=== PATIENT | female | born 1935 | race Caucasian/White ===

== ENCOUNTER 2016-11-03 01:52 | Outpatient (CLI) | payer MEDICARE, OTHER | END 2016-11-03 01:53 | disposition short-term general hospital (02) | LOC: EMS 01:52 | PROVIDERS: ATTEND Surgery | DX: R53.1 Weakness (principal); R29.6 Repeated falls; W18.39XA Other fall on same level, initial encounter; Y92.092 Bedroom in other non-institutional residence as the place of occurrence of the external cause | CPT/HCPCS: A0425; A0429 ==

== ENCOUNTER 2017-01-20 14:13 | Outpatient (CLI) | payer MEDICARE, OTHER | END 2017-01-20 14:14 | disposition short-term general hospital (02) | LOC: EMS 14:13 | PROVIDERS: ATTEND Surgery | DX: R06.02 Shortness of breath (principal); R11.2 Nausea with vomiting, unspecified; R53.1 Weakness; Z99.2 Dependence on renal dialysis | CPT/HCPCS: A0425; A0429 ==

== ENCOUNTER 2017-08-07 22:21 | Outpatient (CLI) | payer MEDICARE, OTHER | END 2017-08-07 22:22 | disposition critical access hospital (66) | LOC: EMS 22:21 | PROVIDERS: ATTEND Surgery | DX: S09.90XA Unspecified injury of head, initial encounter (principal); R53.1 Weakness; W18.39XA Other fall on same level, initial encounter; Y93.01 Activity, walking, marching and hiking; Y92.090 Kitchen in other non-institutional residence as the place of occurrence of the external cause | CPT/HCPCS: A0425; A0427 ==

== ENCOUNTER 2017-08-07 22:38 | Emergency (ER) | payer MEDICARE, OTHER ==
[2017-08-07 23:13] LABS: BASOPHILS # (AUTO) 0.1 10^3/uL (0.0-0.1); BASOPHILS % (AUTO) 1.5 %; EOSINOPHILS # (AUTO) 0.3 10^3/uL (0.0-0.7); HGB - HEMOGLOBIN 11.2 g/dL (12.0-16.0); LYMPHOCYTES # (AUTO) 1.2 10^3/uL (1.5-3.5); LYMPHOCYTES % (AUTO) 13.8 %; MEAN CORPUSCULAR HEMOGLOBIN 33.7 pg (27.0-31.0); MEAN CORPUSCULAR HGB CONC 32.8 g/dL (32.0-36.0); MEAN CORPUSCULAR VOLUME 102.8 fL (81.0-99.0); MONOCYTES # (AUTO) 0.7 10^3/uL (0.0-1.0); MONOCYTES % (AUTO) 8.3 %; NEUTROPHILS # (AUTO) 6.4 10^3/uL (1.5-6.6); NEUTROPHILS % (AUTO) 73.4 %; PLT - PLATELET COUNT 335 10^3/uL (130-450); RED CELL DISTRIBUTION WIDTH 14.2 % (12.0-15.0); WHITE BLOOD COUNT 8.8 x10^3/uL (4.8-10.8)
--- NOTE | 2017-08-07 23:17 | ED Physician Documentation ---
History of Present Illness - Stated complaint Stated Complaint: WEAKNESS,DIZZY, FELL,HIT HEAD, RIGHT HIP PAIN - Chief complaint Chief Complaint: Neuro - History obtained from History obtained from: Patient, EMS - History of Present Illness Timing: Today - Additonal information Additional information: Patient is an 82 year old female with a history of diabetes on dialysis MWF who is presenting to the emergency department after falling. According to patient and ems patient had gotten up and tried to ambulate (normally uses a walker) and patient fell. Patient landed on her right side and ended up hitting her head. EMS was called and when they arrived patient was found on the ground and that her blood glucose was in the 40s. Patient was treated with oral glucose and brought in for evaluation. Review of Systems Constitutional: denies: Fever, Chills Eyes: denies: Decreased vision, Photophobia Ears: denies: Ear pain, Drainage/discharge Nose: denies: Epistaxis Cardiac: denies: Chest pain / pressure, Palpitations, Calf pain Respiratory: denies: Dyspnea, Cough GI: denies: Nausea, Vomiting Skin: reports: Abrasion (s) Musculoskeletal: reports: Extremity pain, Joint pain. denies: Neck pain Neurologic: reports: Generalized weakness, Head injury. 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 - Present Medications Home Medications: Ambulatory Orders Medication Instructions Recorded Confirmed Acetaminophen [8 Hour Pain Relief] 650 mg PO Q6HR PRN 08/26/12 01/27/14 Darifenacin [Enablex] 15 mg PO 08/26/12 01/27/14 Docusate Sodium 250 mg PO PRN 08/26/12 01/27/14 Folic Acid/Vit Bcomp,C [Dialyvite 1 each PO 08/26/12 01/27/14 Tablet] Gabapentin 300 mg PO DAILY 08/26/12 01/27/14 Gabapentin 900 mg PO HS 08/26/12 01/27/14 Insulin Glargine [Lantus] 38 unit SUBQ QPM 08/26/12 01/27/14 Insulin Glulisine [Apidra] 12 unit SQ BIDAC 08/26/12 01/27/14 Lanthanum Carbonate [Fosrenol] 1,000 mg PO DAILY 08/26/12 01/27/14 Simvastatin 80 mg PO DAILY 08/26/12 01/27/14 Albuterol Sulfate [Albuterol 2 puffs IH Q6HR PRN 10/02/13 01/27/14 Sulfate Hfa] Amlodipine Besylate [Norvasc] 2.5 mg PO BID 10/02/13 01/27/14 Amlodipine Besylate [Norvasc] 5 mg PO BID 10/02/13 01/27/14 Benzonatate 100 mg PO DAILY PRN 10/02/13 01/27/14 Carvedilol [Coreg] 12.5 mg PO DAILY 10/02/13 01/27/14 Folic Acid/Vit Bcomp,C [Dialyvite 800 mg PO DAILY 10/02/13 01/27/14 Tablet] Loratadine 10 mg PO DAILY PRN 10/02/13 01/27/14 Pravastatin Sodium [Pravachol] 40 mg PO DAILY 10/02/13 01/27/14 Saccharomyces Boulardii [Florastor] 250 mg PO DAILY 10/02/13 01/27/14 Sevelamer Carbonate [Renvela] 2,400 mg PO TID 10/02/13 01/27/14 Tolterodine [Detrol LA] 4 mg PO DAILY 10/02/13 01/27/14 - Allergies Allergies/Adverse Reactions: Allergies Allergy/AdvReac Type Severity Reaction Status Date / Time Penicillins Allergy Severe Rash Verified 08/07/17 22:45 Sulfa (Sulfonamide Allergy Intermediate Hives Verified 08/07/17 22:45 Antibiotics) Salicylates * [Salicylates] Allergy Unknown Unknown Verified 08/07/17 22:45 aspirin AdvReac Mild Emesis Verified 08/07/17 22:45 codeine [Codeine] AdvReac Mild Nausea Verified 08/07/17 22:45 - Social History Does the pt smoke?: No Smoking Status: Never smoker Does the pt drink ETOH?: No Does the pt have substance abuse?: No - Immunizations Immunizations are current?: Yes - POLST POLST Status: Limited Interventions PD ED PE NORMAL - Vitals Vital signs reviewed: Yes - General General: Alert and oriented X 3, No acute distress - HEENT HEENT: PERRL - Neck Neck: No bony TTP - Cardiac Cardiac: RRR - Respiratory Respiratory: No respiratory distress - Abdomen Abdomen: Non distended - Derm Derm: Normal color - Extremities Extremities: No deformity - Neuro Neuro: Alert and oriented X 3, No motor deficit, Normal speech Eye Opening: Spontaneous Motor: Obeys Commands Verbal: Oriented GCS Score: 15 - Psych Psych: Normal mood PD ED PE EXPANDED - HEENT HEENT: Head injury (small abrasion to right posterior scalp), PERRL, EOMI Results - Vitals Vitals: Vital Signs - 24 hr 08/07/17 08/07/17 08/08/17 22:39 23:42 00:17 Temperature 36.1 C L Heart Rate 64 61 63 Respiratory 20 16 19 Rate Blood Pressure 191/50 H 176/46 H 167/62 H O2 Saturation 97 100 100 08/08/17 01:06 Temperature Heart Rate 67 Respiratory 14 Rate Blood Pressure 168/47 H O2 Saturation 99 Oxygen O2 Source [] Room air O2 Source [] Nasal cannula O2 Source Room air - EKG (time done) 2243 Rate: Rate (enter#) (62) Rhythm: NSR Baxter: Anterior hemiblock Intervals: Normal LA, RBBB Compare to prior EKG: Unchanged from prior EKG - Labs Labs: Laboratory Tests 08/07/17 08/07/17 08/07/17 23:03 23:03 23:03 WBC 8.8 RBC 3.30 L Hgb 11.2 L Hct 34.0 L MCV 102.8 H MCH 33.7 H MCHC 32.8 RDW 14.2 Plt Count 335 MPV 8.0 Neut # 6.4 Lymph # 1.2 L Parke # 0.7 Eos # 0.3 Baso # 0.1 Absolute Nucleated RBC 0.00 Nucleated RBC % 0.0 Sodium 135 Potassium 4.0 Chloride 93 L Carbon Dioxide 32 Anion Gap 10.0 BUN 40 H Creatinine 5.9 H Estimated GFR (MDRD) 7 L Glucose 66 L Calcium 9.3 Phosphorus 4.7 H Magnesium 2.7 Total Bilirubin 0.4 AST 20 ALT 15 Alkaline Phosphatase 129 H Troponin I 0.10 Total Protein 7.0 Albumin 4.1 Globulin 2.9 Albumin/Globulin Ratio 1.4 Lipase 54 H 08/08/17 01:00 WBC RBC Hgb Hct MCV MCH MCHC RDW Plt Count MPV Neut # Lymph # Parke # Eos # Baso # Absolute Nucleated RBC Nucleated RBC % Sodium Potassium Chloride Carbon Dioxide Anion Gap BUN Creatinine Estimated GFR (MDRD) Glucose Calcium Phosphorus Magnesium Total Bilirubin AST ALT Alkaline Phosphatase Troponin I 0.09 Total Protein Albumin Globulin Albumin/Globulin Ratio Lipase - Rads (name of study) ct head Radiology: Final report received (no acute intracranial pathology) PD MEDICAL DECISION MAKING - ED course Complexity details: reviewed old records, reviewed results, re-evaluated patient , considered differential, d/w patient, d/w family ED course: patient was seen and examined at bedside. Patient was awake and oriented. ekg was performed and was unchanged from previous. labs were drawn and imaging was ordered. When patient returned from imaging the results were reviewed. there were no acute abnormalities. patient was given a high carbohydrate meal. patient's repeat troponin remained negative and patient was asymptomatic. Patient required no further work up and was stable to go home with her family. Departure - Departure Disposition: 01 Home, Self Care Clinical Impression: Fall, Scalp hematoma Condition: Good Instructions: Falls Risks Prevent Follow-Up: primary,care provider [Other] - Tomorrow Comments: Your diagnostics today were within normal limits. there were no major abnormalities aside from your blood sugar being slightly low. Make sure you that you have adequate caloric intake. If you have recurrence of these symptoms you may need to change your insulin regiment. You may return to the emergency department at any time for new, worsening or uncontrollable symptoms.
[2017-08-07 23:28] LABS: ALBUMIN 4.1 g/dL (3.2-5.5); ALBUMIN/GLOBULIN RATIO 1.4 (1.0-2.2); BILIRUBIN,TOTAL 0.4 mg/dL (0.2-1.0); CALCIUM 9.3 mg/dL (8.5-10.3); CREATININE 5.9 mg/dL (0.4-1.0); MAGNESIUM 2.7 mg/dL (1.7-2.8); PHOSPHORUS 4.7 mg/dL (2.5-4.6)
--- NOTE | 2017-08-08 00:10 | CT Report ---
EXAM: CT HEAD EXAM DATE: 08/08/2017. CLINICAL HISTORY: Fall, head trauma. COMPARISON: Head CT 09/28/2012. TECHNIQUE: Multiaxial CT images were obtained from the foramen magnum to the vertex. Reformats: Coron al. IV contrast: None. In accordance with CT protocol optimization, one or more of the following dose reduction techniques w ere utilized for this exam: automated exposure control, adjustment of mA and/or KV based on patient s ize, or use of iterative reconstructive technique. FINDINGS: Parenchyma: No intraparenchymal hemorrhage. No evidence of mass, midline shift, or CT findings of acu te infarction. Saleh-white differentiation is distinct. Diffuse chronic microangiopathic white matter changes are evident. Extraaxial Spaces: Normal for age. No subdural or epidural collections identified. Ventricles: The ventricles and cortical sulci are enlarged, consistent with age-related tissue loss. Sinuses and orbits: Imaged paranasal sinuses, orbits, and mastoids show no significant abnormality. Bones: No evidence of fracture or calvarial defect. Other: None. IMPRESSION: Generalized age-related cortical atrophic changes without evidence of acute intracranial abnormality. [facility] Referring Provider Line: [phone] SITE ID: [id number]
--- NOTE | 2017-08-08 00:10 | CT Preliminary Report ---
Exam: CT HEAD W/O IMPRESSION: Generalized age-related cortical atrophic changes without evidence of acute intracranial abnormality. [facility] SITE ID: [id number]
[2017-08-08 01:07] VITALS: BP 168/47
== END 2017-08-08 01:43 | disposition home or self-care (01) ==
LOC: EDUNIT# → ED 22:38
DX: S00.03XA Contusion of scalp, initial encounter (principal); W18.30XA Fall on same level, unspecified, initial encounter; I50.9 Heart failure, unspecified; E11.9 Type 2 diabetes mellitus without complications; I13.0 Hypertensive heart and chronic kidney disease with heart failure and stage 1 through stage 4 chronic kidney disease, or unspecified chronic kidney disease; N28.9 Disorder of kidney and ureter, unspecified; Z79.4 Long term (current) use of insulin
CPT/HCPCS: 36415; 70450; 80053; 83690; 83735; 84100; 84484; 85025; 93005; 99284

== ENCOUNTER 2018-01-12 07:14 | Outpatient (CLI) | payer MEDICARE, OTHER | END 2018-01-12 07:15 | disposition short-term general hospital (02) | LOC: EMS 07:14 | PROVIDERS: ATTEND Surgery | DX: R06.02 Shortness of breath (principal); Z99.2 Dependence on renal dialysis | CPT/HCPCS: A0425; A0427; A0888 ==

== ENCOUNTER 2019-12-06 09:14 | Outpatient (CLI) | payer MEDICARE, OTHER | END 2019-12-06 09:15 | disposition short-term general hospital (02) | LOC: EMS 09:14 | PROVIDERS: ATTEND Surgery | DX: M25.552 Pain in left hip (principal); M54.5 Low back pain; W19.XXXA Unspecified fall, initial encounter | CPT/HCPCS: A0425; A0429 ==

== ENCOUNTER 2019-12-23 02:10 | Outpatient (CLI) | payer MEDICARE, OTHER | END 2019-12-23 02:11 | disposition short-term general hospital (02) | LOC: EMS 02:10 | PROVIDERS: ATTEND Surgery | DX: R06.02 Shortness of breath (principal); Z99.81 Dependence on supplemental oxygen | CPT/HCPCS: A0425; A0427 ==

== ENCOUNTER 2019-12-31 14:29 | Outpatient (CLI) | payer MEDICARE, OTHER | END 2019-12-31 14:30 | disposition short-term general hospital (02) | LOC: EMS 14:29 | PROVIDERS: ATTEND Surgery | DX: D58.2 Other hemoglobinopathies (principal) | CPT/HCPCS: A0425; A0429 ==

== ENCOUNTER 2020-01-25 09:50 | Outpatient (CLI) | payer MEDICARE, OTHER | END 2020-01-25 09:51 | disposition short-term general hospital (02) | LOC: EMS 09:50 | PROVIDERS: ATTEND Surgery | DX: S00.03XA Contusion of scalp, initial encounter (principal); W18.39XA Other fall on same level, initial encounter; Y93.K9 Activity, other involving animal care; Y92.190 Kitchen in other specified residential institution as the place of occurrence of the external cause | CPT/HCPCS: A0425; A0429 ==

== ENCOUNTER 2020-01-31 07:59 | Outpatient (CLI) | payer MEDICARE, OTHER | END 2020-01-31 08:00 | disposition short-term general hospital (02) | LOC: EMS 07:59 | PROVIDERS: ATTEND Surgery | DX: R07.9 Chest pain, unspecified (principal); R46.4 Slowness and poor responsiveness; R09.89 Other specified symptoms and signs involving the circulatory and respiratory systems | CPT/HCPCS: A0425; A0427 ==

== ENCOUNTER 2020-02-01 00:12 | Outpatient (CLI) | payer MEDICARE, OTHER | END 2020-02-01 00:13 | disposition short-term general hospital (02) | LOC: EMS 00:12 | PROVIDERS: ATTEND Surgery | DX: R41.0 Disorientation, unspecified (principal); Z99.2 Dependence on renal dialysis | CPT/HCPCS: A0425; A0427 ==

== ENCOUNTER 2020-02-26 13:05 | Outpatient (CLI) | payer MEDICARE, OTHER | END 2020-02-26 13:06 | disposition critical access hospital (66) | LOC: EMS 13:05 | PROVIDERS: ATTEND Surgery | DX: M25.552 Pain in left hip (principal); R51.9 Headache, unspecified | CPT/HCPCS: A0425; A0429 ==

== ENCOUNTER 2020-02-26 13:40 | Emergency (ER) | payer MEDICARE, OTHER ==
--- NOTE | 2020-02-26 14:18 | ED Physician Documentation ---
History of Present Illness - Stated complaint Stated Complaint: GLF/HIP PX - Chief complaint Chief Complaint: Ext Problem - History obtained from History obtained from: Patient, EMS - History of Present Illness Timing: Today Pain level max: 4 Pain level now: 3 - Additonal information Additional information: Patient is an 85-year-old female who presents to the emergency department after a ground-level fall earlier today. Complaining of mild left hip pain. Worse with movement, better with rest. She was able to ambulate after the event. EMS brought her in for further evaluation and care. She is on dialysis. Had dialysis yesterday. 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 - Present Medications Home Medications: Ambulatory Orders Medication Instructions Recorded Confirmed Acetaminophen [8 Hour Pain Relief] 650 mg PO Q6HR PRN 08/26/12 01/27/14 Darifenacin [Enablex] 15 mg PO 08/26/12 01/27/14 Docusate Sodium 250 mg PO PRN 08/26/12 01/27/14 Folic Acid/Vit B Complex and C 1 each PO 08/26/12 01/27/14 [Dialyvite Tablet] Gabapentin 300 mg PO DAILY 08/26/12 01/27/14 Gabapentin 900 mg PO HS 08/26/12 01/27/14 Insulin Glargine [Lantus] 38 unit SUBQ QPM 08/26/12 01/27/14 Insulin Glulisine [Apidra] 12 unit SQ BIDAC 08/26/12 01/27/14 Lanthanum Carbonate [Fosrenol] 1,000 mg PO DAILY 08/26/12 01/27/14 Simvastatin 80 mg PO DAILY 08/26/12 01/27/14 Albuterol Sulfate [Albuterol 2 puffs IH Q6HR PRN 10/02/13 01/27/14 Sulfate Hfa] Amlodipine Besylate [Norvasc] 2.5 mg PO BID 10/02/13 01/27/14 Amlodipine Besylate [Norvasc] 5 mg PO BID 10/02/13 01/27/14 Benzonatate 100 mg PO DAILY PRN 10/02/13 01/27/14 Folic Acid/Vit B Complex and C 800 mg PO DAILY 10/02/13 01/27/14 [Dialyvite Tablet] Loratadine 10 mg PO DAILY PRN 10/02/13 01/27/14 Pravastatin Sodium [Pravachol] 40 mg PO DAILY 10/02/13 01/27/14 Saccharomyces Boulardii [Florastor] 250 mg PO DAILY 10/02/13 01/27/14 Sevelamer Carbonate [Renvela] 2,400 mg PO TID 10/02/13 01/27/14 Tolterodine [Detrol LA] 4 mg PO DAILY 10/02/13 01/27/14 carvediloL [Coreg] 12.5 mg PO DAILY 10/02/13 01/27/14 - Allergies Allergies/Adverse Reactions: Allergies Allergy/AdvReac Type Severity Reaction Status Date / Time Penicillins Allergy Severe Rash Verified 08/07/17 22:45 Sulfa (Sulfonamide Allergy Intermediate Hives Verified 08/07/17 22:45 Antibiotics) Salicylates * [Salicylates] Allergy Unknown Unknown Verified 08/07/17 22:45 aspirin AdvReac Mild Emesis Verified 08/07/17 22:45 codeine [Codeine] AdvReac Mild Nausea Verified 08/07/17 22:45 - Social History Does the pt smoke?: No Smoking Status: Never smoker Does the pt drink ETOH?: No Does the pt have substance abuse?: No - Immunizations Immunizations are current?: Yes - POLST Patient has POLST: Yes POLST Status: Limited Interventions PD ED PE NORMAL - Vitals Vital signs reviewed: Yes - General General: Alert and oriented X 3, No acute distress - HEENT HEENT: Atraumatic, PERRL, Moist mucous membranes - Neck Neck: Supple, no meningeal sign, No bony TTP - Cardiac Cardiac: RRR - Respiratory Respiratory: No respiratory distress, Clear bilaterally - Abdomen Abdomen: Soft, Non tender, Non distended - Back Back: No spinal TTP - Derm Derm: Warm and dry - Extremities Extremities: Other (Mild pain at the extremes of motion of the left hip. No crepitus. Mild tenderness over the greater trochanter. No external rotation. No shortening. NVI) - Neuro Neuro: Alert and oriented X 3 Results - Vitals Vitals: Vital Signs - 24 hr 02/26/20 02/26/20 02/26/20 13:45 13:50 16:14 Temperature 36.9 C 36.0 C L Heart Rate 67 66 70 Respiratory 16 18 16 Rate Blood Pressure 187/60 H 196/60 H 188/59 H O2 Saturation 93 96 95 Oxygen O2 Source [] Room air O2 Source [] Nasal cannula O2 Source Room air - Rads (name of study) L hip xray Radiology: Prelim report reviewed, EMP read contemporaneously, See rad report pelvis CT Radiology: Prelim report reviewed, EMP read contemporaneously, See rad report PD MEDICAL DECISION MAKING - ED course Complexity details: reviewed results, re-evaluated patient, considered differential, d/w patient ED course: 85-year-old female presents to the emergency department after a ground-level fall today. Has left hip pain. Initial left hip x-ray was concerning for left superior pubic ramus fracture. CT of the pelvis performed, does not show any fractures in the pelvis or the hip. Patient is ambulating well. Declines pain medication. We will have her follow-up with her doctor for further care. Patient counseled regarding signs and symptoms for which I believe and urgent re-evaluation would be necessary. Patient with good understanding of and agreement to plan and is comfortable going home at this time This document was made in part using voice recognition software. While efforts are made to proofread this document, sound alike and grammatical errors may occur. CT Pelvis No acute fracture. Finding seen on plain film is likely secondary to artifact. L hip xray Mildly displaced left superior pubic ramus fracture. Departure - Departure Disposition: 01 Home, Self Care Clinical Impression: Contusion, hip Qualifiers: Encounter type: initial encounter Laterality: left Qualified Code(s): S70.02XA - Contusion of left hip, initial encounter Condition: Good Instructions: ED Contusion Hip Follow-Up: Nathan Garza MD [Primary Care Provider] - Within 1 week Comments: Your CT scan does not show any fractures today. You can bear weight as tolerated. Follow-up with your doctor for further care. Discharge Date/Time: 02/26/20 16:50
--- NOTE | 2020-02-26 14:52 | XRAY Report ---
PROCEDURE: Hip w/Pelvis 2-3V LT INDICATIONS: L hip pain s/p fall TECHNIQUE: AP pelvis with lateral view(s) of the left hip(s). COMPARISON: None. FINDINGS: Bones: Linear lucency traverses the left superior pubic ramus. Pelvic ring appears intact. No suspic ious bony lesions. Soft tissues: The visualized bowel gas pattern is normal. No suspicious soft tissue calcifications. IMPRESSION: Mildly displaced left superior pubic ramus fracture. Reviewed by: Eddie Maldonado MD on 02/26/2020 2:50 PM PST Approved by: Eddie Maldonado MD on 02/26/2020 2:50 PM PST Station ID: [id number]
--- NOTE | 2020-02-26 15:34 | CT Report ---
PROCEDURE: PELVIS WO INDICATIONS: fall, possible pubic ramus fracture TECHNIQUE: Noncontrast 3 mm axial sections acquired through the bony pelvis, with coronal and sagittal reformatt ing. For radiation dose reduction, the following was used: automated exposure control, adjustment of mA and/or kV according to patient size. COMPARISON: Plain films dated 02.26.20 FINDINGS: Image quality: Excellent. Bones: No fracture nor osseous lesion. Bilateral hip joint space narrowing and periarticular osteoph yte formation. Soft tissues: Visualized bowel loops are normal in caliber. No fluid collections. Calcification of t he vasculature. IMPRESSION: No acute fracture. Finding seen on plain film is likely secondary to artifact. Reviewed by: Eddie Maldonado MD on 02/26/2020 2:33 PM [place] Approved by: Eddie Maldonado MD on 02/26/2020 2:33 PM [facility] Station ID: [id number]
[2020-02-26 16:15] VITALS: BP 188/59
== END 2020-02-26 16:50 | disposition home or self-care (01) ==
LOC: ED 13:40
DX: S70.02XA Contusion of left hip, initial encounter (principal); W18.30XA Fall on same level, unspecified, initial encounter; Y92.129 Unspecified place in nursing home as the place of occurrence of the external cause; I10 Essential (primary) hypertension; E11.9 Type 2 diabetes mellitus without complications; Z79.4 Long term (current) use of insulin; N28.9 Disorder of kidney and ureter, unspecified; Z99.2 Dependence on renal dialysis
CPT/HCPCS: 72192; 99284

== ENCOUNTER 2020-02-26 16:39 | Outpatient (CLI) | payer MEDICARE, OTHER | END 2020-02-26 16:40 | disposition home or self-care (01) | LOC: EMS 16:39 | PROVIDERS: ATTEND Surgery | DX: R41.0 Disorientation, unspecified (principal) | CPT/HCPCS: A0425; A0428 ==

== ENCOUNTER 2020-03-15 14:53 | Outpatient (CLI) | payer MEDICARE, OTHER | END 2020-03-15 14:54 | disposition short-term general hospital (02) | LOC: EMS 14:53 | PROVIDERS: ATTEND Surgery | DX: R42 Dizziness and giddiness (principal); R51.9 Headache, unspecified; I95.9 Hypotension, unspecified; R44.3 Hallucinations, unspecified | CPT/HCPCS: A0425; A0427 ==

== ENCOUNTER 2020-03-23 10:05 | Outpatient (CLI) | payer MEDICARE, OTHER ==
--- NOTE | 2020-03-23 16:25 | CONSULTATION NOTE ---
Palliative Care Consultation - Referral Referring Provider: Dr. Nathan Garza Time of Visit: [id number] Referral setting: Assisted living Referral Reason: ESRD/Advanced Care Planning/Frequent Hospitalizations - Information Sources Records reviewed: Previous records reviewed History/Review of Systems obtained from: Patient, Family (sonMichael and DILRigoberto via phone), Nursing Exam limitations: Clinical condition (mild STM impairment) - History of Present Illness Brief History of Present Illness: This is a [place] 85-year-old female who was seen and evaluated today for initial palliative care consultation in her assisted living apartment at [facility] due to recent frequent hospitalizations, end-stage renal disease on hemodialysis and advanced care planning. The patient's son, Michael and [id number]-imb, Pricila reports that the patient was doing good until December 2019. In December she started sustaining falls close together. She has had several head CT scans that were negative for an acute abnormality per the daughter's report. In the preceding weeks the patient's had missed some hemodialysis appointments and resulted in an hospitalization at [facility] where she had acute encephalopathy and a discussion was had with the family in regards to transitioning to hospice services. The patient did not recognize her son. However, when the patient's daughter came the following day she was alert and quite adamant that she did not wish to discontinue hemodialysis. The patient's most recent hospitalization was at [facility] from 03/15-03/18 due to acute encephalopathy and hypotension. At that time major adjustments were made to the patient's antihypertensive medications but upon review with the patient's PCP Dr. Garza and the patient's discharge medications this is not reflective on her MAR at [facility]. The patient has been on hemodialysis for approximately 10 years. She reports that she sustained a kidney injury and initially this was thought to be temporary with hemodialysis but then ultimately required sustained mental. She attends hemodialysis Friday, Friday, and Fridays. The patient's [id number] notes that after she has diarrhea Inpatient she appears to be more bright and alert. Both the patient's family and facility staff note that the patient has Had a functional decline over the last several months. She is exhausted after coming back from hemodialysis. She is also not ambulating much outside of her apartment. She is dependent upon a wheelchair for long distances. The patient herself relays that she is "not able to do much of anything" presently. She feels like her legs give out on her frequently. She does recall one recent fall where her legs gave out when she was ambulating to the bathroom with her walker and she hit her head resulting in emergency department visit. She also becomes quite winded when ambulating. She has a history of COPD and right pleural effusion and is on chronic oxygen supplementation. She reports to having headaches without visual changes. And she is having quite large swings in her blood pressure from dialysis to nondialysis days. She is having her blood pressure checked in the mornings of non -dialysis days and her blood pressure has ranged 10 2-1 48 systolic over 40-68 diastolic. Her heart rate has ranged 62-69. The patient is presently on amlodipine, carvedilol, Cardura, hydralazine and losartan for her blood pressure. Staff and the family also report that the patient has had periods of i ntermittent hallucinations. Recently she thought that her cat, Cristina was "talking to her." She also believed that her daughter was present and visiting when she was not. The patient is seen sitting in her recliner in her living room initially asleep but easily arousable. She is well groomed and her slippers are color coordinated with her top. Her supplemental oxygen is in place. Wet Finisher Wool: Dr. Ford Presser Cotton Ginning: Dr. Santos Echometer Engineer: Dr. Armando Medical/Surgical History - Past Medical History Cardiovascular: reports: Congestive heart failure, Hypertension, Coronary artery disease, Other Respiratory: reports: COPD (on chronic oxygen supplementation), Other (right pleural effusion) Neuro: reports: Other (Acute encephalopathy x2 in 2019) Endocrine/Autoimmune: reports: Type 2 diabetes (not on oral medications or insulin, diet controlled) : reports: Dialysis, Renal insuffiency Psych: reports: None Musculoskeletal: reports: Osteoarthritis Derm: reports: None MRSA Hx?: No - Past Surgical History /PATIENT RELATIONS REPRESENTATIVE: reports: Hysterectomy Other past surgical history: Right forearm dialysis fistula - Substance History Use: Uses substance without health or social issues: NONE (Never smoked tobacco) Social History - Living Situation Living arrangement: Assisted living Support System: The patient is . She previously resided with her son, Michael and [id number], Pricila in their home before transitioning to [facility] living in October 2015. She has 2 children, 1 son and 1 daughter. The patient states that her son, Michael is her healthcare power of assistant district attorney. 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 Her , Charlie who was in the [employer]. The patient grew up in [place] and her father worked as a district medical examiner. The patient has a cat, Norah who she has had for 13 years and is her steadfast treasury manager. The patient has quite a collection of spoons that are on display that she has collected on her travels as well as a collection of display T. Malhotra. Family History - Family History Family History: Mother: , [place], Father: , Sister: Alive and Well, Family History Comment/Other: Father had "Black Lung." Medications/Allergies - Medications Home Medications: Ambulatory Orders Medication Instructions Recorded Confirmed Albuterol Sulfate [Proair 2 puffs IH Q4H PRN 03/24/20 03/24/20 Respiclick] Aspirin [Aspirin EC] 81 mg PO DAILY 03/24/20 03/24/20 Calcium Carbonate/Vitamin D3 1,500 mg PO .WITH MEALS 03/24/20 03/24/20 [Calcium 500 mg Chewable Tablet] Dialyvite 1-100mg 1 tab PO DAILY 03/24/20 Docusate Sodium 100Mg Capsule 100 mg PO DAILY 03/24/20 03/24/20 [Colace 100Mg Capsule] Fluticasone [Flonase] 2 spray INH DAILY PRN 03/24/20 03/24/20 Fluticasone/Salmeterol [Advair Hfa 1 puffs IN BID 03/24/20 03/24/20 230-21 Mcg Inhaler] Hydrocodone/Acetaminophen [Reklaw 1 tab PO Q6H PRN 03/24/20 03/24/20 5-325 Tablet] Ibuprofen 1 tab PO QID PRN 03/24/20 03/24/20 Ibuprofen [Motrin] 400 mg PO .DAILYMONWEDFRI 03/24/20 03/24/20 Lactobacillus Acidophilus 1 cap PO BID 03/24/20 03/24/20 [Acidophilus Probiotic] Lido/Priloc 2.5%-2.5% Cr Kit 1 applic TP .THREE TIMES/WEEK 03/24/20 Loperamide 1mg/5ml 15 - 30 ml PO .AFTER LOOSE STOOL 03/24/20 PRN MDD NTE 60mL in 24h Losartan Potassium [Cozaar] 100 mg PO .DAILYTUETHUSATSUN 03/24/20 03/24/20 Nepro Carb Steady 1 bottle PO DAILY 03/24/20 Ondansetron HCl [Zofran] 4 - 8 mg PO Q6H PRN 03/24/20 03/24/20 Phenazopyridine [Pyridium] 100 mg PO TIDWM PRN MDD urinary 03/24/20 03/24/20 symptoms x2days Senna [Senokot] 1 tab PO BID PRN 03/24/20 03/24/20 T-Relief Pain Cream 1 applic TP .DAILYMONWEDFRI 03/24/20 carvediloL [Coreg] 12.5 mg PO .DAILY TUESTHURSATSU 03/24/20 03/24/20 diphenhydrAMINE [Benadryl] 25 - 50 mg PO Q6H PRN 03/24/20 03/24/20 guaiFENesin/DEXTROMETHORPHAN 5 ml PO Q12H PRN 03/24/20 03/24/20 [Robitussin Dm] rOPINIRole [Requip] 0.25 mg PO QPM 03/24/20 03/24/20 traZODone [Desyrel] 1 tab PO QPM PRN 03/24/20 03/24/20 traZODone [Desyrel] 50 mg PO QPM 03/24/20 03/24/20 - Allergies Allergies/Adverse Reactions: Allergies Allergy/AdvReac Type Severity Reaction Status Date / Time Penicillins Allergy Severe Rash Verified 03/24/20 10:45 Sulfa (Sulfonamide Allergy Intermediate Hives Verified 03/24/20 10:45 Antibiotics) Salicylates * [Salicylates] Allergy Unknown Unknown Verified 03/24/20 10:45 aspirin AdvReac Mild Emesis Verified 03/24/20 10:45 codeine [Codeine] AdvReac Mild Nausea Verified 03/24/20 10:45 atorvastatin AdvReac Cramps Verified 03/24/20 10:46 Review of Systems - Constitutional Constitutional: reports: Fatigue (she takes frequent naps during the day), Weight loss - Eyes Eyes: denies: Vision loss - Ears, Nose & Throat Ears, Nose & Throat: reports: Hearing loss, Other (left ear hasbeen bothering her for a few weeks) - Cardiovascular Cardiovascular: reports: Decr. exercise tolerance. denies: Palpitations, Chest pain - Respiratory Respiratory: reports: SOB with exertion, Other (on chronic oxygen). denies: Cough - Gastrointestinal Gastrointestinal: reports: Other (history of Fluctuation of bowel movements: constipation and diarrhea; Appetite varies some days being good and some days being poor as she reports that at times she is not hungry.) - Genitourinary Genitourinary: reports: Other (Anuric) - Musculoskeletal Musculoskeletal: reports: Assistive devices, Transfer issues, Other (feels like her legs will give out on her at times) - Integumentary Integumentary: denies: Rash - Neurological Neurological: reports: General weakness, Headache (intermittent), Memory problems (forgetful) - Psychiatric Psychiatric: denies: Depression - Endocrine Endocrine: reports: Diabetes type 2 (no longer requiring oral therapy or insulin) - All Other Systems All Other Systems: reports: Reviewed and negative (ROS supplemented by patient's family as well) Physical Exam - Vital Signs Pulse Rate: 60 Respiratory Rate: 18 O2 Saturation: 96 (on 2L via NC) Blood Pressure: 101/60 (left FA sitting) - Physical Exam General Appearance: positive: No acute distress, Alert, Other (well groomed, frail appearing) Eyes Bilateral: positive: Normal inspection ENT: positive: No signs of dehydration, Other (Right ear: TM intact without cerumen Left ear: soft, yellow cerumen impeding view of TM. With patient's permission used lighted curette and otoscope to remove cerumen with TM then visualized and intact.) Neck: positive: Trachea midline Cardiovascular: positive: Regular rate & rhythm, Systolic murmur, Other (Right Forearm AV fistula +thrill and +bruit) Respiratory: positive: No respiratory distress, Other (diminished RLL). negative: Wheezes Abdomen: positive: Non-tender, Soft, Nml bowel sounds. negative: Distended Skin: positive: Pallor Extremities: positive: Non-tender, Full ROM Neurologic/Psychiatric: positive: Oriented x3, Mood/affect nml Palliative Care - POLST Patient has POLST: Yes POLST Status: DNR, Comfort Measures Pain: No pain Tiredness/Fatigue: Moderate (4-6) (especially increased after dialysis) Nausea: None Anorexia: Mild (1-3) (appetite waxes and wanes), Weight loss Depression: None Anxiety: None Sleep: Sleeps well Constipation: Intermittent constipation Performance Status: Requires walker for short distances and wheelchair for long distances. History of frequent falls. Able to self feed. Continent of bowel. PPS 50% - Palliative Care Discussion: The patient has artfully handled the last 10 years on hemodialysis and is becoming to display signs and symptoms of fatigue, autonomic dysregulation with episodes of hypotension, encephalopathy and weight loss. The patient's family and facility staff recognize her cognitive and functional decline which has been more rapid over the last 3 to 4 months. The patient herself acknowledges that she is getting tired and fatigued but when exploring her continued commitment to hemodialysis she relays "it is just something that I have to do." The patient's family recognize that she is "on borrowed time" and wish for her to be comfortable and honor her wishes regarding end-of-life. The family is appreciative for palliative care involvement for monitoring the patient within the facility setting as due to the coronavirus they are unable to have close physical contact with the patient. Impression and Recommendations - Palliative Care Impression: This is an 85-year-old female who has had a slow functional decline that has increased in the last 3 to 4 months with cognitive decline in the setting of encephalopathy, symptomatic hypotension, and longstanding end-stage renal disease on hemodialysis. The patient is open to additional support with in her facility setting and while comes palliative care continued support. Palliative care will continue to build rapport, explore goals of care, symptom management, care coordination and advance care planning moving forward. Recommendations/Counseling Done: 1. Cerumen impaction, left ear. Lighted curette and otoscope used to remove Cerumen. Patient tolerated procedure well and tympanic membrane then visualized and intact. Patient notes improvement of left ear discussed comfort after removal of cerumen. 2. Hypertension secondary to end-stage renal disease with autonomic dysregulation with symptomatic hypotension. Lengthy discussion with patient's PCP and brain picker and care coordination. After review of patient's present antihypertensive medication all in agreement to the following: d/c amlodipine, d/c doxazosin, d/c hydralazine, order clarification for carevediolol 12.5mg BID to be administered on non-dialysis days (//Sat/Sun) and hold if SBP less than 130 and continue losartan as ordered. We will continue to monitor blood pressure trends on nondialysis days moving forward and adjust accordingly for patient's comfort. 3. Headaches. The last CT performed this month of head demonstrated "no acute intracranial abnormality. Chronic microvascular ischemic changes and age- related cerebral atrophy." Headaches are likely due to patient's autonomic dysregulation with hypotension leading to decreased perfusion and headache. Continue ibuprofen prior to dialysis on Friday, Friday, Friday. Will monitor for effectiveness. 4. Encephalopathy. Metabolic and hypotension related. Acute episodes with hospitalization in January and March 2020. Patient with some mild short-term memory impairment noted. Requested healthcare power of assistant district attorney paperwork from [facility] for record. Patient reports that her son, Michael is her healthcare power of assistant district attorney for decision making. Continue to attend dialysis as scheduled to avoid encephalopathy event. Continue to monitor and provide support to the patient. 5. Coronary artery disease. Patient requested during hospitalization at [facility] this month to have her statin therapy discontinued due to leg cramps and it remains on her MAR for her facility. Reviewed with patient's son/DPOA and DIL, will discontinue atorvastatin given the patent's reported side effects, advanced age and falls. She has no previous history of OH or CVA. Given the patient's time to see benefit of statin therapy in primary prevention of atherosclerosis and medication side effects appropriate to discontinue atorvastatin at this time. 6.Right pleural effusion, chronic and COPD. Pleural effusion secondary to diastolic dysfunction. On chronic oxygen supplementation. No prior history of tobacco use. Dyspnea on exertion. Encourage patient to perform energy conservation techniques during ambulation. Followed by pulp piler. 7. Advanced care planning. Patient has POLST as DN AR with comfort measures. The patient expresses fatigue and is aware of her functional decline. At the present time the patient weighing benefits versus burdens of treatment wishes to continue proceeding forward with hemodialysis and her family is supportive of this. Supportive listening provided. Palliative care will continue to provide support and explore goals of care moving forward. Time Spent: F/u in 2-4 weeks or prn if new/worsening symptoms. Total time spent 65 minutes with greater than 50% of this spent in counseling and coordination of care with patient and facility staff; examination of patient; review of palliative philosophy; review of symptom management and anticipatory guidance. Contacted patient's son/DPOA, Michael and FRANCIS Palmer at [phone] at patient's request and discussed POC at length with questions answered and addressed. Spoke to patient's PCP, Dr. Garza and brain picker, Dr. Armando to coordinate POC. Disclaimer: The chart note was formulated using voice recognition technology and unfortunately sound alike errors may occur.
== END 2020-03-23 10:06 | disposition home or self-care (01) ==
LOC: PC 10:05
PROVIDERS: ATTEND Nurse Practitioner Family
DX: Z51.5 Encounter for palliative care (principal); H61.22 Impacted cerumen, left ear; I13.2 Hypertensive heart and chronic kidney disease with heart failure and with stage 5 chronic kidney disease, or end stage renal disease; I50.9 Heart failure, unspecified; N18.6 End stage renal disease; E11.22 Type 2 diabetes mellitus with diabetic chronic kidney disease; I95.9 Hypotension, unspecified; R51.9 Headache, unspecified; I25.10 Atherosclerotic heart disease of native coronary artery without angina pectoris; J44.9 Chronic obstructive pulmonary disease, unspecified; Z99.81 Dependence on supplemental oxygen; Z99.2 Dependence on renal dialysis; Z66 Do not resuscitate

== ENCOUNTER 2020-04-03 11:47 | Outpatient (CLI) | payer MEDICARE, OTHER | END 2020-04-03 11:48 | disposition home or self-care (01) | LOC: EMS 11:47 | PROVIDERS: ATTEND Surgery | DX: R40.4 Transient alteration of awareness (principal) | CPT/HCPCS: A0425; A0427 ==

== ENCOUNTER 2020-04-03 12:07 | Emergency (ER) | payer MEDICARE, OTHER ==
--- NOTE | 2020-04-03 12:37 | ED Physician Documentation ---
History of Present Illness - Stated complaint Stated Complaint: AMS - Chief complaint Chief Complaint: Neuro - History obtained from History obtained from: Patient - Additonal information Additional information: 85yo woman with history of end-stage renal disease who presents from dialysis. Reportedly during or after dialysis she became confused and was reportedly hypotensive although the specific number/blood pressure was not reported. She is able to relay only minimal history, and so much of the history is from review of the chart. She had a palliative care visit on the 10th of this month. It looks like she has had 2 hospitalizations for encephalopathy so far this year. They were also related with hypotension. Patient's only complaint is a headache, that does not sound like it is acute because the palliative care note mentions chronic headaches. She is DNR, but evidently continuing dialysis for now even though the palliative care note suggests that they are considering ceasing dialysis. 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 - Present Medications Home Medications: Ambulatory Orders Medication Instructions Recorded Confirmed Albuterol Sulfate [Proair 2 puffs IH Q4H PRN 03/24/20 03/24/20 Respiclick] Aspirin [Aspirin EC] 81 mg PO DAILY 03/24/20 03/24/20 Calcium Carbonate/Vitamin D3 1,500 mg PO .WITH MEALS 03/24/20 03/24/20 [Calcium 500 mg Chewable Tablet] Dialyvite 1-100mg 1 tab PO DAILY 03/24/20 Docusate Sodium 100Mg Capsule 100 mg PO DAILY 03/24/20 03/24/20 [Colace 100Mg Capsule] Fluticasone [Flonase] 2 spray INH DAILY PRN 03/24/20 03/24/20 Fluticasone/Salmeterol [Advair Hfa 1 puffs IN BID 03/24/20 03/24/20 230-21 Mcg Inhaler] Hydrocodone/Acetaminophen [[place] 1 tab PO Q6H PRN 03/24/20 03/24/20 5-325 Tablet] Ibuprofen 1 tab PO QID PRN 03/24/20 03/24/20 Ibuprofen [Motrin] 400 mg PO .DAILYMONWEDFRI 03/24/20 03/24/20 Lactobacillus Acidophilus 1 cap PO BID 03/24/20 03/24/20 [Acidophilus Probiotic] Lido/Priloc 2.5%-2.5% Cr Kit 1 applic TP .THREE TIMES/WEEK 03/24/20 Loperamide 1mg/5ml 15 - 30 ml PO .AFTER LOOSE STOOL 03/24/20 PRN MDD NTE 60mL in 24h Losartan Potassium [Cozaar] 100 mg PO .DAILYTUETHUSATSUN 03/24/20 03/24/20 Nepro Carb Steady 1 bottle PO DAILY 03/24/20 Ondansetron HCl [Zofran] 4 - 8 mg PO Q6H PRN 03/24/20 03/24/20 Phenazopyridine [Pyridium] 100 mg PO TIDWM PRN MDD urinary 03/24/20 03/24/20 symptoms x2days Senna [Senokot] 1 tab PO BID PRN 03/24/20 03/24/20 T-Relief Pain Cream 1 applic TP .DAILYMONWEDFRI 03/24/20 carvediloL [Coreg] 12.5 mg PO .DAILY TUESTHURSATSU 03/24/20 03/24/20 diphenhydrAMINE [Benadryl] 25 - 50 mg PO Q6H PRN 03/24/20 03/24/20 guaiFENesin/DEXTROMETHORPHAN 5 ml PO Q12H PRN 03/24/20 03/24/20 [Robitussin Dm] rOPINIRole [Requip] 0.25 mg PO QPM 03/24/20 03/24/20 traZODone [Desyrel] 1 tab PO QPM PRN 03/24/20 03/24/20 traZODone [Desyrel] 50 mg PO QPM 03/24/20 03/24/20 - Allergies Allergies/Adverse Reactions: Allergies Allergy/AdvReac Type Severity Reaction Status Date / Time Penicillins Allergy Severe Rash Verified 04/03/20 12:20 Sulfa (Sulfonamide Allergy Intermediate Hives Verified 04/03/20 12:20 Antibiotics) Salicylates * [Salicylates] Allergy Unknown Unknown Verified 04/03/20 12:20 aspirin AdvReac Mild Emesis Verified 04/03/20 12:20 codeine [Codeine] AdvReac Mild Nausea Verified 04/03/20 12:20 atorvastatin AdvReac Cramps Verified 04/03/20 12:20 - Social History Does the pt smoke?: No Smoking Status: Never smoker Does the pt drink ETOH?: No Does the pt have substance abuse?: No - Immunizations Immunizations are current?: Yes - POLST Patient has POLST: Yes POLST Status: Limited Interventions PD ED PE NORMAL - Vitals Vital signs reviewed: Yes - General General: Other (Oriented to person and she knows she is in a hospital, otherwise is disoriented. She is wearing 2 L of oxygen and appears comfortable.) - HEENT HEENT: PERRL, EOMI - Neck Neck: Supple, no meningeal sign, No bony TTP - Cardiac Cardiac: RRR, Other (3 out of 6 decrescendo systolic murmur) - Respiratory Respiratory: No respiratory distress, Clear bilaterally - Abdomen Abdomen: Non tender - Back Back: No CVA TTP, No spinal TTP - Derm Derm: Normal color, Warm and dry - Extremities Extremities: No edema, No calf tenderness / cord - Neuro Neuro: Other (She has good cork cutter strength on both sides, will not lift either leg off the bed. Seems symmetric.) Eye Opening: Spontaneous Motor: Obeys Commands Verbal: Confused GCS Score: 14 Results - Vitals Vitals: Vital Signs - 24 hr 04/03/20 04/03/20 04/03/20 12:14 12:30 14:15 Temperature 36.2 C L Heart Rate 81 79 79 Respiratory 70 H 19 20 Rate Blood Pressure 168/76 H 181/83 H O2 Saturation 93 100 99 04/03/20 14:46 Temperature Heart Rate 79 Respiratory 23 Rate Blood Pressure 239/63 H O2 Saturation 100 Oxygen O2 Source [] Room air O2 Source [] Nasal cannula O2 Source Nasal cannula - EKG (time done) 1213 Rate: Rate (enter#) (79) Rhythm: NSR [place]: Normal Intervals: Prolonged AR, RBBB, Other (LAFB) Ischemia: Non specific changes Compare to prior EKG: Changed from prior EKG (Compared with the last EKG on the chart dated August 072017 slightly higher T waves in the anterior precordium otherwise without change.) Computer interpretation: Agree with computer - Labs Labs: Laboratory Tests 04/03/20 04/03/20 04/03/20 14:02 14:02 14:02 WBC 10.3 RBC 3.58 L Hgb 11.6 L Hct 36.3 L MCV 101.4 H MCH 32.4 H MCHC 32.0 RDW 15.5 H Plt Count 348 MPV 9.6 Neut # (Auto) 8.8 H Lymph # (Auto) 0.8 L [place] # (Auto) 0.4 Eos # (Auto) 0.1 Baso # (Auto) 0.1 Absolute Nucleated RBC 0.00 Nucleated RBC % 0.0 Sodium 134 L Potassium 4.6 Chloride 95 L Carbon Dioxide 26 Anion Gap 13.0 BUN 36 H Creatinine 5.0 H Estimated GFR (MDRD) 8 L Glucose 203 H Calcium 9.0 Magnesium 2.3 Total Bilirubin 0.7 AST 16 ALT 11 Alkaline Phosphatase 70 Troponin I High Sens 35.3 H* Total Protein 6.3 L Albumin 3.3 Globulin 3.0 Albumin/Globulin Ratio 1.1 Procedures - General procedure General procedure: She was difficult for IV access, looks around in her arms and there really was not much with ultrasound. The right EJ was accessible and of decent size and after ChloraPrep I personally placed a 22-gauge IV that flushed and julissa well. PD MEDICAL DECISION MAKING - ED course ED course: I tried calling her son's house after initial evaluation, there was no answer. The voicemail was nonspecific so I did not leave a message. The nurse called the dialysis center and clarified that her systolic blood pressure was 77 and she received about a 500 mL normal saline bolus. Tried calling the son again and this time did leave a generic message to call the hospital ER. Son did call me back and I actually spoke mostly with the [id number] since she is a nurse. They are available at [phone]. They previously been told that it was her blood pressure medications making her hypotensive and causing these repeat episodes and on her last admission at [facility] they had adjusted her medications. She always improves with dialysis at [facility]. Is unclear why this is happening otherwise. They are in agreement with transfer to [facility] after I have labs back. Spoke with Dr. Gonzalez, the hospitalist at [facility]. He accepts in transfer but would like me to discuss the case with the metal burrer on-call, positing that if the metal burrer plans to do dialysis he would make her an inpatient and if not, observation. Subsequently I spoke with Dr. Hart who does not think urgent dialysis is needed. Departure - Departure Disposition: 02 Transfer Acute Care Hosp Clinical Impression: ESRD (end stage renal disease) Altered mental status Qualifiers: Altered mental status type: delirium Qualified Code(s): R41.0 - Disorientation, unspecified Condition: Stable
--- NOTE | 2020-04-03 13:31 | CT Report ---
PROCEDURE: HEAD WO INDICATIONS: altered TECHNIQUE: Noncontrast 4.5 mm thick angled axial sections acquired from the foramen magnum to the vertex. For r adiation dose reduction, the following was used: automated exposure control, adjustment of mA and/or kV according to patient size. COMPARISON: None. FINDINGS: Image quality: Excellent. CSF spaces: Basal cisterns are patent. No extra-axial fluid collections. Ventricles are normal in size and shape. Brain: No midline shift. No intracranial masses or hemorrhage. Saleh-white matter interface is norm al. Diffuse, scattered nonspecific white matter signal changes, statistically represent chronic micr ovascular ischemic disease although differential includes neurodegenerative, infectious/inflammatory, demyelinating etiologies among other possibilities. Skull and face: Calvarium and visualized facial bones are intact, without suspicious lesions. Sinuses: Visualized sinuses and mastoids are clear. IMPRESSION: No acute intracranial process. Reviewed by: Zhne Guillermo MD on 04/03/2020 1:30 PM PST Approved by: Zhen Guillermo MD on 04/03/2020 1:30 PM PST Station ID: [id number]
[2020-04-03 14:11] LABS: BASOPHILS # (AUTO) 0.1 10^3/uL (0.0-0.1); BASOPHILS % (AUTO) 0.7 %; EOSINOPHILS # (AUTO) 0.1 10^3/uL (0.0-0.7); EOSINOPHILS % (AUTO) 1.3 %; HGB - HEMOGLOBIN 11.6 g/dL (12.0-16.0); LYMPHOCYTES # (AUTO) 0.8 10^3/uL (1.5-3.5); LYMPHOCYTES % (AUTO) 7.6 %; MEAN CORPUSCULAR HEMOGLOBIN 32.4 pg (27.0-31.0); MEAN CORPUSCULAR VOLUME 101.4 fL (81.0-99.0); MEAN PLATELET VOLUME 9.6 fL (7.9-10.8); MONOCYTES # (AUTO) 0.4 10^3/uL (0.0-1.0); NEUTROPHILS # (AUTO) 8.8 10^3/uL (1.5-6.6); NEUTROPHILS % (AUTO) 85.9 %; PLT - PLATELET COUNT 348 10^3/uL (130-450); RED BLOOD COUNT 3.58 10^6/uL (4.20-5.40); RED CELL DISTRIBUTION WIDTH 15.5 % (12.0-15.0); WHITE BLOOD COUNT 10.3 x10^3/uL (4.8-10.8)
[2020-04-03 14:26] LABS: ALBUMIN 3.3 g/dL (3.2-5.5); ALBUMIN/GLOBULIN RATIO 1.1 (1.0-2.2); BILIRUBIN,TOTAL 0.7 mg/dL (0.2-1.0); MAGNESIUM 2.3 mg/dL (1.7-2.8); TOTAL PROTEIN 6.3 g/dL (6.7-8.2)
[2020-04-03 16:23] VITALS: BP 167/65
[2020-04-03 17:10] LABS: C. PNEUMONIAE- RESP PCR PANEL NOT DETECTED
== END 2020-04-03 16:31 | disposition short-term general hospital (02) ==
LOC: EDUNIT# → ED 12:07
DX: R41.0 Disorientation, unspecified (principal); I13.2 Hypertensive heart and chronic kidney disease with heart failure and with stage 5 chronic kidney disease, or end stage renal disease; E11.22 Type 2 diabetes mellitus with diabetic chronic kidney disease; N18.6 End stage renal disease; I50.9 Heart failure, unspecified; Z99.2 Dependence on renal dialysis; Z20.828 Contact with and (suspected) exposure to other viral communicable diseases; I45.2 Bifascicular block; J44.9 Chronic obstructive pulmonary disease, unspecified; Z99.81 Dependence on supplemental oxygen; Z79.82 Long term (current) use of aspirin; Z66 Do not resuscitate
CPT/HCPCS: 0202U; 36415; 70450; 80053; 83735; 84484; 85025; 93005; 99285

== ENCOUNTER 2020-04-03 16:26 | Outpatient (CLI) | payer MEDICARE, OTHER | END 2020-04-03 16:27 | disposition short-term general hospital (02) | LOC: EMS 16:26 | PROVIDERS: ATTEND Surgery | DX: R41.0 Disorientation, unspecified (principal); N18.6 End stage renal disease | CPT/HCPCS: A0425; A0426 ==

== ENCOUNTER 2020-04-14 | Outpatient (CLI) | payer MEDICARE, OTHER | END 2020-04-14 18:46 | disposition short-term general hospital (02) | CPT/HCPCS: A0425; A0429 ==

== ENCOUNTER 2020-04-16 00:16 | Outpatient (CLI) | payer MEDICARE, OTHER | END 2020-04-16 00:17 | disposition critical access hospital (66) | LOC: EMS 00:16 | PROVIDERS: ATTEND Surgery | DX: R06.09 Other forms of dyspnea (principal) | CPT/HCPCS: A0425; A0429 ==

== ENCOUNTER 2020-04-16 00:34 | Emergency (ER) | payer MEDICARE, OTHER ==
--- NOTE | 2020-04-16 00:53 | ED Physician Documentation ---
History of Present Illness - Stated complaint Stated Complaint: SOA - History obtained from History obtained from: Patient, EMS - Additonal information Additional information: Patient is brought to the emergency department by EMS after having an episode of difficulty breathing at her assisted living facility. Medics state that the patient was being helped to bed by staff when she suddenly became dyspneic and appeared cyanotic. She was on her usual 3 L of oxygen per nasal cannula which seemed to be flowing. She was put down on the bed and her oxygen was turned up to 4 L. Medics state that by the time they got there, the patient was doing much better and stated she felt almost back to normal. She has had O2 sats 99- 100% on 4L O2, all the way here. The patient denies any chest pain. She states she does feel a little unwell but cannot really explain exactly how. Patient feels a little more short of breath than usual right now. No fevers or chills recently. No cough. The patient has no smoking history. Medics state they are not sure whether the patient has a history of COPD, as they could not find that exact diagnosis and the patient's history. Patient does note that she has diabetes but is not aware of any underlying heart or lung issues. It is not clear why the patient is on oxygen supplementally [id number]. No other complaints at this time. Patient has a POLST form which states "DNR comfort measures only", but patient states she is willing to have some tests done in the ER, including blood work. Review of Systems Ten Systems: 10 systems reviewed and negative Constitutional: reports: Reviewed and negative. denies: Fever, Chills Eyes: reports: Reviewed and negative Ears: reports: Reviewed and negative Nose: reports: Reviewed and negative Throat: reports: Reviewed and negative Cardiac: reports: Reviewed and negative. denies: Chest pain / pressure Respiratory: reports: Dyspnea. denies: Cough GI: reports: Reviewed and negative : reports: Reviewed and negative Skin: reports: Reviewed and negative Musculoskeletal: reports: Reviewed and negative Neurologic: reports: Reviewed and negative Psychiatric: reports: Reviewed and negative Endocrine: reports: Reviewed and negative Immunocompromised: reports: Reviewed and negative PD PAST MEDICAL HISTORY - Past Medical History Cardiovascular: Congestive heart failure, Hypertension, Coronary artery disease, Other Respiratory: COPD (on chronic oxygen supplementation), Other (right pleural effusion) Endocrine/Autoimmune: Type 2 diabetes (not on oral medications or insulin, diet controlled) : Dialysis, Renal insuffiency Psych: None Musculoskeletal: Osteoarthritis Derm: None - Past Surgical History 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 - Present Medications Home Medications: Ambulatory Orders Medication Instructions Recorded Confirmed Albuterol Sulfate [Proair 2 puffs IH Q4H PRN 03/24/20 04/16/20 Respiclick] Aspirin [Aspirin EC] 81 mg PO DAILY 03/24/20 04/16/20 Calcium Carbonate/Vitamin D3 1,500 mg PO .WITH MEALS 03/24/20 04/16/20 [Calcium 500 mg Chewable Tablet] Dialyvite 1-100mg 1 tab PO DAILY 03/24/20 04/16/20 Docusate Sodium 100Mg Capsule 100 mg PO DAILY 03/24/20 04/16/20 [Colace 100Mg Capsule] Fluticasone [Flonase] 2 spray INH DAILY PRN 03/24/20 03/24/20 Fluticasone/Salmeterol [Advair Hfa 1 puffs IN BID 03/24/20 04/16/20 230-21 Mcg Inhaler] Hydrocodone/Acetaminophen [[place] 1 tab PO Q6H PRN 03/24/20 04/16/20 5-325 Tablet] Ibuprofen 1 tab PO QID PRN 03/24/20 04/16/20 Ibuprofen [Motrin] 400 mg PO .DAILYMONWEDFRI 03/24/20 04/16/20 Lactobacillus Acidophilus 1 cap PO BID 03/24/20 04/16/20 [Acidophilus Probiotic] Lido/Priloc 2.5%-2.5% Cr Kit 1 applic TP .THREE TIMES/WEEK 03/24/20 Loperamide 1mg/5ml 15 - 30 ml PO .AFTER LOOSE STOOL 03/24/20 04/16/20 PRN MDD NTE 60mL in 24h Losartan Potassium [Cozaar] 100 mg PO .DAILYTUETHUSATSUN 03/24/20 04/16/20 Nepro Carb Steady 1 bottle PO DAILY 03/24/20 04/16/20 Ondansetron HCl [Zofran] 4 - 8 mg PO Q6H PRN 03/24/20 04/16/20 Phenazopyridine [Pyridium] 100 mg PO TIDWM PRN MDD urinary 03/24/20 04/16/20 symptoms x2days Senna [Senokot] 1 tab PO BID PRN 03/24/20 04/16/20 T-Relief Pain Cream 1 applic TP .DAILYMONWEDFRI 03/24/20 04/16/20 carvediloL [Coreg] 12.5 mg PO .DAILY TUESTHURSATSU 03/24/20 04/16/20 diphenhydrAMINE [Benadryl] 25 - 50 mg PO Q6H PRN 03/24/20 03/24/20 guaiFENesin/DEXTROMETHORPHAN 5 ml PO Q12H PRN 03/24/20 04/16/20 [Robitussin Dm] rOPINIRole [Requip] 0.25 mg PO QPM 03/24/20 04/16/20 traZODone [Desyrel] 1 tab PO QPM PRN 03/24/20 04/16/20 traZODone [Desyrel] 50 mg PO QPM 03/24/20 04/16/20 amLODIPine [Norvasc] 10 mg PO DAILY 04/16/20 04/16/20 - Allergies Allergies/Adverse Reactions: Allergies Allergy/AdvReac Type Severity Reaction Status Date / Time Penicillins Allergy Severe Rash Verified 04/16/20 00:53 Sulfa (Sulfonamide Allergy Intermediate Hives Verified 04/16/20 00:53 Antibiotics) Salicylates * [Salicylates] Allergy Unknown Unknown Verified 04/16/20 00:53 aspirin AdvReac Mild Emesis Verified 04/16/20 00:53 codeine [Codeine] AdvReac Mild Nausea Verified 04/16/20 00:53 atorvastatin AdvReac Cramps Verified 04/16/20 00:53 - Social History Does the pt smoke?: No Smoking Status: Never smoker Does the pt drink ETOH?: No Does the pt have substance abuse?: No - Immunizations Immunizations are current?: Yes - POLST Patient has POLST: Yes POLST Status: Limited Interventions PD ED PE NORMAL - Vitals Vital signs reviewed: Yes - General General: Alert and oriented X 3 (Grossly oriented; patient does answer questions for herself.), No acute distress - HEENT HEENT: Atraumatic, PERRL, EOMI, Moist mucous membranes - Neck Neck: Supple, no meningeal sign - Cardiac Cardiac: RRR, No murmur - Respiratory Respiratory: No respiratory distress, Clear bilaterally (Patient does have mildly decreased air movement throughout bilateral lung mota.) - Abdomen Abdomen: Soft, Non tender, Non distended - Derm Derm: Normal color, Warm and dry, No rash - Extremities Extremities: No deformity, No calf tenderness / cord, Other (Trace pitting edema bilateral lower extremities.) - Neuro Neuro: Alert and oriented X 3 - Psych Psych: Normal mood, Normal affect Results - Vitals Vitals: Vital Signs - 24 hr 04/16/20 04/16/20 04/16/20 00:46 01:18 01:52 Temperature 36.4 C L Heart Rate 65 65 63 Respiratory 18 18 26 H Rate Blood Pressure 158/65 H 158/65 H 158/65 H O2 Saturation 100 100 100 04/16/20 04/16/20 04/16/20 02:19 02:41 03:05 Temperature Heart Rate 64 63 61 Respiratory 17 20 23 Rate Blood Pressure 158/57 H 139/58 H 144/59 H O2 Saturation 100 100 100 04/16/20 04/16/20 03:31 04:02 Temperature Heart Rate 61 62 Respiratory 21 26 H Rate Blood Pressure 144/59 H 129/63 O2 Saturation 100 100 Oxygen O2 Source [] Room air O2 Source [] Nasal cannula O2 Source Nasal cannula Oxygen Flow Rate 3 - EKG (time done) 0039 Rate: Rate (enter#) (65) Rhythm: NSR, LAE [place]: Normal Intervals: RBBB QRS: Normal Ischemia: Normal ST segments, T wave inversion (III; biphasic V6) - Labs Labs: Laboratory Tests 04/16/20 04/16/20 04/16/20 01:29 01:29 01:29 WBC 10.3 RBC 2.83 L Hgb 9.0 L Hct 29.9 L MCV 105.7 H MCH 31.8 H MCHC 30.1 L RDW 15.0 Plt Count 399 MPV 9.7 Neut # (Auto) 8.8 H Lymph # (Auto) 0.7 L [place] # (Auto) 0.6 Eos # (Auto) 0.1 Baso # (Auto) 0.1 Absolute Nucleated RBC 0.00 Nucleated RBC % 0.0 Sodium 140 Potassium 3.6 Chloride 99 L Carbon Dioxide 28 Anion Gap 13.0 BUN 32 H Creatinine 4.1 H Estimated GFR (MDRD) 10 L Glucose 183 H Calcium 9.4 Total Bilirubin 0.8 AST 16 ALT 13 Alkaline Phosphatase 53 Troponin I High Sens 120.5 H* B-Natriuretic Peptide Total Protein 7.1 Albumin 3.7 Globulin 3.4 Albumin/Globulin Ratio 1.1 Lipase 58 H 04/16/20 04/16/20 01:29 02:44 WBC RBC Hgb Hct MCV MCH MCHC RDW Plt Count MPV Neut # (Auto) Lymph # (Auto) [place] # (Auto) Eos # (Auto) Baso # (Auto) Absolute Nucleated RBC Nucleated RBC % Sodium Potassium Chloride Carbon Dioxide Anion Gap BUN Creatinine Estimated GFR (MDRD) Glucose Calcium Total Bilirubin AST ALT Alkaline Phosphatase Troponin I High Sens 117.4 H* B-Natriuretic Peptide 4931 H Total Protein Albumin Globulin Albumin/Globulin Ratio Lipase - Rads (name of study) CXR Radiology: Final report received, EMP read indepedently, See rad report (R pleural effusion, existing. R lung base consolidation.) PD MEDICAL DECISION MAKING - ED course Complexity details: reviewed old records, reviewed results, re-evaluated patient, considered differential, d/w patient ED course: Patient was worked up with labs, EKG, and chest x-ray. The patient's x-ray showed continued presence of a right pleural effusion with consolidation. No significant findings of pulmonary edema. The patient's BNP was over 4000, but the most recent comparison was quite distant, so the acuity of this was unclear. Patient's initial troponin was 120. Repeat was 117. The patient had a creatinine of 4.2, consistent with her history of end-stage renal disease on hemodialysis. The patient was noted to have a hemoglobin of 9 compared with her most recent hemoglobin 2 weeks ago of 11.6. The reason for this drop is not clear. The patient is DNR with comfort measures only, and records indicate that family is considering ceasing dialysis for the patient. At this point in time, I did not feel that there was an acute issue indicating hospital admission and management, given the patient's DNR comfort status. The patient has been com fortable and in no apparent distress here in the emergency department and we have discussed the usual indications for return. Patient has been advised of her anemia and the need for follow-up to have this level rechecked, if this is in line with what the patient desires for her comfort care. Departure - Departure Disposition: 01 Home, Self Care Clinical Impression: Pleural effusion Dyspnea Qualifiers: Dyspnea type: dyspnea on exertion Qualified Code(s): R06.00 - Dyspnea, unspecified Anemia Qualifiers: Anemia type: unspecified type Qualified Code(s): D64.9 - Anemia, unspecified Condition: Stable Instructions: ED Dyspnea Shortness of Breath Comments: Your x-ray continues to show some buildup of fluid in your chest cavity on the right, surrounding but not within the air sacs of the lungs. This has been present in times past. You do have chronic congestive heart failure, which was demonstrated on your labs today. However, you do not appear to be building up an excessive amount of fluid in the lungs themselves. Your red blood cell levels have dropped somewhat in the last 2 weeks, and it is unclear exactly why. Your doctor should recheck this level in about a week. Given that you desire mainly to be kept comfortable throughout the duration of your life, it is up to you how much you would like to pursue any of these issues. It is probable that the lower red blood cell count is making you feel tired and somewhat short of breath, and for this reason, it may be worth monitoring this by way of your doctor rechecking it in week. At that time, if your level has dropped again, your doctor can discuss with you whether you should be on iron pills or whether you may need a transfusion. At this point in time, there is no indication for a transfusion however. Please get plenty of fluids to drink and continue your dialysis schedule. Discharge Date/Time: 04/16/20 04:24
[2020-04-16 01:38] LABS: BASOPHILS # (AUTO) 0.1 10^3/uL (0.0-0.1); BASOPHILS % (AUTO) 0.7 %; EOSINOPHILS # (AUTO) 0.1 10^3/uL (0.0-0.7); EOSINOPHILS % (AUTO) 1.3 %; LYMPHOCYTES # (AUTO) 0.7 10^3/uL (1.5-3.5); LYMPHOCYTES % (AUTO) 6.4 %; MEAN CORPUSCULAR HEMOGLOBIN 31.8 pg (27.0-31.0); MEAN CORPUSCULAR HGB CONC 30.1 g/dL (32.0-36.0); MEAN CORPUSCULAR VOLUME 105.7 fL (81.0-99.0); MEAN PLATELET VOLUME 9.7 fL (7.9-10.8); MONOCYTES # (AUTO) 0.6 10^3/uL (0.0-1.0); NEUTROPHILS # (AUTO) 8.8 10^3/uL (1.5-6.6); NEUTROPHILS % (AUTO) 85.3 %; PLT - PLATELET COUNT 399 10^3/uL (130-450); RED BLOOD COUNT 2.83 10^6/uL (4.20-5.40); WHITE BLOOD COUNT 10.3 x10^3/uL (4.8-10.8)
[2020-04-16 01:51] LABS: ALBUMIN 3.7 g/dL (3.2-5.5); ALBUMIN/GLOBULIN RATIO 1.1 (1.0-2.2); BILIRUBIN,TOTAL 0.8 mg/dL (0.2-1.0); CALCIUM 9.4 mg/dL (8.5-10.3); CREATININE 4.1 mg/dL (0.4-1.0); TOTAL PROTEIN 7.1 g/dL (6.7-8.2)
[2020-04-16 04:03] VITALS: BP 129/63
--- NOTE | 2020-04-16 10:32 | XRAY Report ---
PROCEDURE: Chest 1 View X-Ray INDICATIONS: Chest Pain TECHNIQUE: One view of the chest was acquired. COMPARISON: Chest x-ray, 1 view, 01/27/2014 FINDINGS: Surgical changes and devices: None. Lungs and pleura: Bilateral perihilar infiltrates suspicious for pulmonary edema. Right basilar cons olidation or atelectasis. Moderate right pleural effusion. No pneumothorax. Mediastinum: Mediastinal contours appear normal. Heart size is increased. Bones and chest wall: No suspicious bony lesions. Overlying soft tissues appear unremarkable. IMPRESSION: 1. Bilateral perihilar infiltrates suspicious for pulmonary edema secondary to congestive heart failu re. 2. Moderate right pleural effusion with right basilar consolidation or atelectasis. Superimposed pneu monia cannot be excluded. No significant discrepancy with the preliminary interpretation. Reviewed by: Dayo Zuleta MD on 04/16/2020 10:30 AM PST Approved by: Dayo Zuleta MD on 04/16/2020 10:30 AM PST Station ID: [id number]
== END 2020-04-16 04:24 | disposition home or self-care (01) ==
LOC: EDUNIT# → ED 00:34 → SUPCPDRO 00:34 → ED 04:24
DX: J90 Pleural effusion, not elsewhere classified (principal); I13.2 Hypertensive heart and chronic kidney disease with heart failure and with stage 5 chronic kidney disease, or end stage renal disease; E11.22 Type 2 diabetes mellitus with diabetic chronic kidney disease; N18.6 End stage renal disease; I50.9 Heart failure, unspecified; D64.9 Anemia, unspecified; J44.9 Chronic obstructive pulmonary disease, unspecified; Z99.2 Dependence on renal dialysis; Z99.81 Dependence on supplemental oxygen; Z66 Do not resuscitate
CPT/HCPCS: 36415; 80053; 83690; 83880; 84484; 85025; 93005; 99285

== ENCOUNTER 2020-04-30 12:53 | Outpatient (CLI) | payer MEDICARE, OTHER | END 2020-04-30 12:54 | disposition critical access hospital (66) | LOC: EMS 12:53 | PROVIDERS: ATTEND Surgery | DX: R40.4 Transient alteration of awareness (principal); R61 Generalized hyperhidrosis | CPT/HCPCS: A0425; A0427 ==

== ENCOUNTER 2020-04-30 13:07 | Emergency (ER) | payer MEDICARE, OTHER ==
[2020-04-30] MEDS ORDERED: SODIUM CHLORIDE 0.9% 1,000 ML IV STA (13:15)
[2020-04-30] MEDS ORDERED: MORPHINE 2 MG/ML CARPUJECT IVP STA ×2 (13:15→15:05)
--- NOTE | 2020-04-30 13:18 | ED Physician Documentation ---
History of Present Illness - Stated complaint Stated Complaint: UNRESPONSIVE - History obtained from History obtained from: Family, EMS - Additonal information Additional information: This is an 85-year-old woman who is in palliative care with multiple medical problems including dialysis, Friday, recurrent episodes of encephalopathy and weakness who presents by priority ambulance from [facility] as she was found unresponsive this morning. All of the history is from the paramedics, the family by phone. The patient is nonverbal at this point. She was noted to be hypotensive in the range of 70/40 with borderline bradycardia in the high 40s that did not respond to atropine. She was also quite diaphoretic. Prehospital EKG showed reportedly right bundle branch block without obvious ischemia. Review of Systems Unable to obtain: AMS, Confused PD PAST MEDICAL HISTORY - Past Medical History Cardiovascular: Congestive heart failure, Hypertension, Coronary artery disease, Other Respiratory: COPD (on chronic oxygen supplementation), Other (right pleural effusion) Endocrine/Autoimmune: Type 2 diabetes (not on oral medications or insulin, diet controlled) : Dialysis, Renal insuffiency Psych: None Musculoskeletal: Osteoarthritis Derm: None - Past Surgical History Past Surgical History: Yes /LAST REPAIRER: Hysterectomy - Present Medications Home Medications: Ambulatory Orders Medication Instructions Recorded Confirmed Albuterol Sulfate [Proair 2 puffs IH Q4H PRN 03/24/20 04/16/20 Respiclick] Aspirin [Aspirin EC] 81 mg PO DAILY 03/24/20 04/16/20 Calcium Carbonate/Vitamin D3 1,500 mg PO .WITH MEALS 03/24/20 04/16/20 [Calcium 500 mg Chewable Tablet] Dialyvite 1-100mg 1 tab PO DAILY 03/24/20 04/16/20 Docusate Sodium 100Mg Capsule 100 mg PO DAILY 03/24/20 04/16/20 [Colace 100Mg Capsule] Fluticasone [Flonase] 2 spray INH DAILY PRN 03/24/20 03/24/20 Fluticasone/Salmeterol [Advair Hfa 1 puffs IN BID 03/24/20 04/16/20 230-21 Mcg Inhaler] Hydrocodone/Acetaminophen [[place] 1 tab PO Q6H PRN 03/24/20 04/16/20 5-325 Tablet] Ibuprofen 1 tab PO QID PRN 03/24/20 04/16/20 Ibuprofen [Motrin] 400 mg PO .DAILYMONWEDFRI 03/24/20 04/16/20 Lactobacillus Acidophilus 1 cap PO BID 03/24/20 04/16/20 [Acidophilus Probiotic] Lido/Priloc 2.5%-2.5% Cr Kit 1 applic TP .THREE TIMES/WEEK 03/24/20 Loperamide 1mg/5ml 15 - 30 ml PO .AFTER LOOSE STOOL 03/24/20 04/16/20 PRN MDD NTE 60mL in 24h Losartan Potassium [Cozaar] 100 mg PO .DAILYTUETHUSATSUN 03/24/20 04/16/20 Nepro Carb Steady 1 bottle PO DAILY 03/24/20 04/16/20 Ondansetron HCl [Zofran] 4 - 8 mg PO Q6H PRN 03/24/20 04/16/20 Phenazopyridine [Pyridium] 100 mg PO TIDWM PRN MDD urinary 03/24/20 04/16/20 symptoms x2days Senna [Senokot] 1 tab PO BID PRN 03/24/20 04/16/20 T-Relief Pain Cream 1 applic TP .DAILYMONWEDFRI 03/24/20 04/16/20 carvediloL [Coreg] 12.5 mg PO .DAILY TUESTHURSATSU 03/24/20 04/16/20 diphenhydrAMINE [Benadryl] 25 - 50 mg PO Q6H PRN 03/24/20 03/24/20 guaiFENesin/DEXTROMETHORPHAN 5 ml PO Q12H PRN 03/24/20 04/16/20 [Robitussin Dm] rOPINIRole [Requip] 0.25 mg PO QPM 03/24/20 04/16/20 traZODone [Desyrel] 1 tab PO QPM PRN 03/24/20 04/16/20 traZODone [Desyrel] 50 mg PO QPM 03/24/20 04/16/20 amLODIPine [Norvasc] 10 mg PO DAILY 04/16/20 04/16/20 - Allergies Allergies/Adverse Reactions: Allergies Allergy/AdvReac Type Severity Reaction Status Date / Time Penicillins Allergy Severe Rash Verified 04/30/20 13:20 Sulfa (Sulfonamide Allergy Intermediate Hives Verified 04/30/20 13:20 Antibiotics) Salicylates * [Salicylates] Allergy Unknown Unknown Verified 04/30/20 13:20 aspirin AdvReac Mild Emesis Verified 04/30/20 13:20 codeine [Codeine] AdvReac Mild Nausea Verified 04/30/20 13:20 atorvastatin AdvReac Cramps Verified 04/30/20 13:20 - Social History Does the pt smoke?: No Smoking Status: Never smoker Does the pt drink ETOH?: No Does the pt have substance abuse?: No - Immunizations Immunizations are current?: Yes - POLST Patient has POLST: Yes POLST Status: Limited Interventions PD ED PE NORMAL - Vitals Vital signs reviewed: Yes - General General: Other (She is moaning, seems to respond to verbal stimulus but not saying anything. Not even her name when prompted. She is quite diaphoretic.) - HEENT HEENT: Other (Small reactive pupils) - Neck Neck: Supple, no meningeal sign, No bony TTP - Cardiac Cardiac: RRR, No murmur - Respiratory Respiratory: Other (Rhonchorous bilaterally slightly labored) - Abdomen Abdomen: Soft, Non tender - Back Back: No CVA TTP, No spinal TTP - Derm Derm: Other (sweaty) - Extremities Extremities: No edema, No calf tenderness / cord - Neuro Eye Opening: To Voice Motor: Withdraws to Pain Verbal: Incomprehensible GCS Score: 9 Results - Vitals Vitals: Vital Signs - 24 hr 04/30/20 05/01/20 05/01/20 21:00 00:00 02:00 Heart Rate Respiratory 12 10 L 11 L Rate Blood Pressure O2 Saturation 05/01/20 05/01/20 05/01/20 04:00 06:00 06:42 Heart Rate 52 L Respiratory 10 L 14 12 Rate Blood Pressure O2 Saturation 05/01/20 05/01/20 05/01/20 09:07 11:00 11:32 Heart Rate 54 L 56 L 56 L Respiratory 12 22 22 Rate Blood Pressure 61/30 L O2 Saturation 97 05/01/20 05/01/20 14:18 17:27 Heart Rate 60 56 L Respiratory 24 24 Rate Blood Pressure O2 Saturation Oxygen O2 Source [] Room air O2 Source [] Nasal cannula O2 Source Room air - EKG (time done) 1316 Rate: Rate (enter#) (58) Rhythm: NSR, LAE [place]: Normal Intervals: RBBB, Other (LAFB) Ischemia: Non specific changes. No: ST elevation c/w ischemia Compare to prior EKG: Unchanged from prior EKG Computer interpretation: Agree with computer - Labs Labs: Laboratory Tests 04/30/20 04/30/20 04/30/20 13:53 13:53 13:53 WBC 7.4 RBC 2.57 L Hgb 8.5 L Hct 28.8 L MCV 112.1 H MCH 33.1 H MCHC 29.5 L RDW 15.2 H Plt Count 295 MPV 10.4 Neut # (Auto) 6.5 Lymph # (Auto) 0.5 L [place] # (Auto) 0.2 Eos # (Auto) 0.1 Baso # (Auto) 0.1 Absolute Nucleated RBC 0.00 Nucleated RBC % 0.0 Manual Slide Review Indicated WBC Morphology 1+ VACUOLATION Platelet Estimate NORMAL (130-450,000) Platelet Morphology NORMAL APPEARANCE RBC Morph Micro Appear 2+ MACROCYTOSIS VBG pH VBG pCO2 VBG pO2 VBG HCO3 VBG Total CO2 VBG O2 Saturation VBG Base Excess Sodium 138 Potassium 3.3 L Chloride 100 L Carbon Dioxide 24 Anion Gap 14.0 H BUN 32 H Creatinine 4.4 H Estimated GFR (MDRD) 10 L Glucose 185 H Lactic Acid Calcium 9.2 Total Bilirubin 0.9 AST 28 ALT 20 Alkaline Phosphatase 56 Troponin I High Sens B-Natriuretic Peptide 3163 H Total Protein 6.2 L Albumin 3.1 L Globulin 3.1 Albumin/Globulin Ratio 1.0 Lipase 26 04/30/20 04/30/20 04/30/20 13:53 13:53 13:53 WBC RBC Hgb Hct MCV MCH MCHC RDW Plt Count MPV Neut # (Auto) Lymph # (Auto) [place] # (Auto) Eos # (Auto) Baso # (Auto) Absolute Nucleated RBC Nucleated RBC % Manual Slide Review WBC Morphology Platelet Estimate Platelet Morphology RBC Morph Micro Appear VBG pH 7.296 L VBG pCO2 47.6 VBG pO2 49.7 H VBG HCO3 22.7 L VBG Total CO2 24.1 VBG O2 Saturation 85.4 H VBG Base Excess -3.8 L Sodium Potassium Chloride Carbon Dioxide Anion Gap BUN Creatinine Estimated GFR (MDRD) Glucose Lactic Acid 1.3 Calcium Total Bilirubin AST ALT Alkaline Phosphatase Troponin I High Sens 33.2 H* B-Natriuretic Peptide Total Protein Albumin Globulin Albumin/Globulin Ratio Lipase PD MEDICAL DECISION MAKING - ED course ED course: This is an 85-year-old woman who is in palliative care presents by ambulance appearing quite acutely ill. Palliative care notes and previous records were reviewed and the case was discussed with her [id number] Pricila by phone after initial evaluation. They do not want any heroic measures, do not feel like she would be a candidate for surgery or other interventional means. They would like her comfortable most of all. They will make their way to the hospital and we agreed to do some labs in the interim to give some prognostic information but with the understanding that she looks quite ill and may imminently. Spoke with Dr. Bellamy for observation at 3 PM. Subsequently I was notified by the seasonal warehouse associate that utilization management felt she did not fit criteria for observation nor for admission and she would have to remain in ED patient. I wrote as needed orders and she will be moved to the floor but remain in ED status. In the subsequent hours I checked on her several times. She is obtunded, breathing shallowly. No radial pulse but continued to have a brachial pulse. She appears comfortable and the family is happy with the care. Update 05/01/20; 13:08 Arrangements had been made while I was off shift to enroll her in hospice and as I arrived for shift the plan was that she would go back to [place] in the care of hospice later this afternoon. I went to check on the patient. Reportedly she has been a little more responsive today even eating a bit but her last blood pressure around 11 AM was about 60/30. Family had concerns that the process of transport would be traumatic for her and the family, especially if she were to in route. They felt they would carry a lot of guilt for that. I discussed with Dr. Bradshaw whether she was potentially a GIP admit and his opinion is that she could not be admitted inpatient under hospice as a GIP admit. Discussed with family, they request to remain in our care in the hospital at this time. 05/01/20 19:15 I was notified by the nurse at 1915 hrs. that there had been a change in status. I went and saw the patient and there was no pulse, no spontaneous breathing activity, no heart sounds. Family was at the bedside. Departure - Departure Disposition: 20 Clinical Impression: ESRD (end stage renal disease), End of life care Dyspnea Qualifiers: Dyspnea type: unspecified Qualified Code(s): R06.00 - Dyspnea, unspecified Altered mental status Qualifiers: Altered mental status type: coma Coma depth: [place] coma 9-12 Coma timing: in the field (EMT or ambulance) Qualified Code(s): R40.2421 - [place] coma scale score 9-12, in the field [EMT or ambulance] Condition: Stable
[2020-04-30 13:55] LABS: BASOPHILS # (AUTO) 0.1 10^3/uL (0.0-0.1); BASOPHILS % (AUTO) 0.7 %; EOSINOPHILS # (AUTO) 0.1 10^3/uL (0.0-0.7); EOSINOPHILS % (AUTO) 0.8 %; HGB - HEMOGLOBIN 8.5 g/dL (12.0-16.0); LYMPHOCYTES # (AUTO) 0.5 10^3/uL (1.5-3.5); LYMPHOCYTES % (AUTO) 7.2 %; MEAN CORPUSCULAR HEMOGLOBIN 33.1 pg (27.0-31.0); MEAN CORPUSCULAR HGB CONC 29.5 g/dL (32.0-36.0); MEAN CORPUSCULAR VOLUME 112.1 fL (81.0-99.0); MEAN PLATELET VOLUME 10.4 fL (7.9-10.8); MONOCYTES # (AUTO) 0.2 10^3/uL (0.0-1.0); NEUTROPHILS # (AUTO) 6.5 10^3/uL (1.5-6.6); PLT - PLATELET COUNT 295 10^3/uL (130-450); RED BLOOD COUNT 2.57 10^6/uL (4.20-5.40); RED CELL DISTRIBUTION WIDTH 15.2 % (12.0-15.0); WHITE BLOOD COUNT 7.4 x10^3/uL (4.8-10.8)
[2020-04-30 14:09] LABS: VBG PCO2 47.6 mmHg (41-51); VBG PH 7.296 (7.31-7.41)
[2020-04-30 14:10] LABS: VBG BASE EXCESS -3.8 mmol/L (-2 - +2); VBG PO2 49.7 mmHg (25-47); VBG TOTAL CO2 24.1 mmol/L (24-29)
[2020-04-30 14:23] LABS: PLATELET ESTIMATE, MANUAL NORMAL (130-450,000) (NORMAL); PLATELET MORPHOLOGY NORMAL APPEARANCE (NORMAL)
[2020-04-30 14:28] LABS: ALBUMIN 3.1 g/dL (3.2-5.5); BILIRUBIN,TOTAL 0.9 mg/dL (0.2-1.0); CALCIUM 9.2 mg/dL (8.5-10.3); CREATININE 4.4 mg/dL (0.4-1.0); TOTAL PROTEIN 6.2 g/dL (6.7-8.2)
[2020-04-30] MEDS ORDERED: MORPHINE 2 MG/ML CARPUJECT ONE (15:14)
[2020-04-30] MEDS ORDERED: SCOPOLAMINE PATCH TOP STA (15:49)
[2020-04-30] MEDS: MORPHINE 2 MG/ML CARPUJECT IVP PRN ×2 (16:31→19:08)
[2020-05-01] MEDS: MORPHINE 2 MG/ML CARPUJECT IVP PRN ×4 (11:02→17:14)
[2020-05-01 11:33] VITALS: BP 61/30
[2020-05-01] MEDS ORDERED: LORazepam 2 MG/ML VIAL IVP PRN (14:29)
[2020-05-01] MEDS ORDERED: MORPHINE SOL 10 MG/0.5 ML ORAL SYRINGE PO PRN (14:30)
== END 2020-05-01 21:10 | disposition expired ==
LOC: EDUNIT# → ED 13:07
DX: R40.20 Unspecified coma (principal); R40.2421 Glasgow coma scale score 9-12, in the field [EMT or ambulance]; R06.00 Dyspnea, unspecified; Z51.5 Encounter for palliative care; Z66 Do not resuscitate; I13.2 Hypertensive heart and chronic kidney disease with heart failure and with stage 5 chronic kidney disease, or end stage renal disease; I50.9 Heart failure, unspecified; E11.22 Type 2 diabetes mellitus with diabetic chronic kidney disease; N18.6 End stage renal disease; Z99.2 Dependence on renal dialysis; I45.2 Bifascicular block; I95.9 Hypotension, unspecified; I25.10 Atherosclerotic heart disease of native coronary artery without angina pectoris; J44.9 Chronic obstructive pulmonary disease, unspecified; Z79.82 Long term (current) use of aspirin
CPT/HCPCS: 80053; 82803; 83605; 83690; 83880; 84484; 85025; 93005; 96361; 96374; 96375; 96376; 99285; J2060; J3490